=== PATIENT | female | born 1965 | race Caucasian/White ===

== ENCOUNTER → 2019-12-11 | Outpatient (CLI) | payer OTHER ==
[2019-12-11 09:53] LABS: BASOPHILS # (AUTO) 0.05 x10^3/uL (0-0.1); BASOPHILS % (AUTO) 1 % (0-1); EOSINOPHILS # (AUTO) 0.42 x10^3/uL (0-0.4); EOSINOPHILS % (AUTO) 4 % (1-7); LYMPHOCYTES # (AUTO) 2.51 x10^3/uL (1-3.4); LYMPHOCYTES % (AUTO) 24 % (22-44); MD NO; MEAN CORPUSCULAR HEMOGLOBIN 25.6 pg (27.0-34.8); MEAN CORPUSCULAR HGB CONC 31.3 g/dL (32.4-35.8); MEAN CORPUSCULAR VOLUME 81.8 fL (80-100); MEAN PLATELET VOLUME 7.7 fL (7.4-10.4); MONOCYTES # (AUTO) 0.68 x10^3/uL (0.2-0.8); MONOCYTES % (AUTO) 7 % (2-9); NEUTROPHILS # (AUTO) 6.83 x10^3/uL (1.8-6.8); NEUTROPHILS % (AUTO) 65 % (42-75); PLATELET COUNT 383 x10^3/uL (130-400); RED BLOOD COUNT 4.85 x10^6/uL (3.82-5.3); RED CELL DISTRIBUTION WIDTH 20.5 % (9.6-15.2)
[2019-12-11 09:57] LABS: ALANINE AMINOTRANSFERASE 33 U/L (12-78); ALBUMIN 3.7 g/dL (3.4-5.0); ANION GAP 6 mmol/L (5-15); CHLORIDE 109 mmol/L (98-107); CREATININE 1.04 mg/dL (0.55-1.02); INTERNATIONAL NORMALIZED RATIO 0.92 (0.93-1.1); PROTHROMBIN TIME 9.7 Seconds (9.6-11.5)
[2019-12-11 10:00] LABS: ALKALINE PHOSPHATASE 99 U/L (45-117); TOTAL PROTEIN 8.1 g/dL (6.4-8.2)
[2019-12-11 10:16] LABS: BILIRUBIN,TOTAL 0.2 mg/dL (0.2-1.0)
== END | disposition home or self-care (01) ==
LOC: STAR 08:52
PROVIDERS: ATTEND Specialist
DX: Z01.818 Encounter for other preprocedural examination (principal); C54.1 Malignant neoplasm of endometrium; N92.1 Excessive and frequent menstruation with irregular cycle
CPT/HCPCS: 36415; 71046; 80053; 85025; 85610; 85730; 86304; 93005

== ENCOUNTER → 2019-12-13 | Outpatient (CLI) | payer OTHER ==
[~2019-12-13] MED LIST: OMNIPAQUE 350 MG/ML, 100ML BOTTLE ONE
== END | disposition home or self-care (01) ==
LOC: CFH 09:04
PROVIDERS: ATTEND Specialist
DX: C54.1 Malignant neoplasm of endometrium (principal); N92.1 Excessive and frequent menstruation with irregular cycle; D64.9 Anemia, unspecified; N83.201 Unspecified ovarian cyst, right side; I70.0 Atherosclerosis of aorta; K76.0 Fatty (change of) liver, not elsewhere classified; N28.1 Cyst of kidney, acquired; M47.814 Spondylosis without myelopathy or radiculopathy, thoracic region
CPT/HCPCS: 71260; 74177; Q9967

== ENCOUNTER 2019-12-19 08:47 | Day surgery (SDC) | payer OTHER ==
[~2019-12-19] VITALS: Ht 165.1 cm; Wt 114.6 kg
[2019-12-19] MEDS ORDERED: LACTATED RINGERS 1,000 ML IV SCH (09:24)
[2019-12-19] MEDS ORDERED: LEVO125T5 PO (09:28)
[2019-12-19] MEDS ORDERED: FERR-46 PO (09:28)
[2019-12-19] MEDS ORDERED: FLUO20CA19 PO (09:28)
[2019-12-19] MEDS ORDERED: BUDE10.2 INH (09:28)
[2019-12-19] MEDS ORDERED: MONT10TA11 PO (09:28)
[2019-12-19] MEDS ORDERED: VITAMIN B-12 PO (09:28)
[2019-12-19] MEDS ORDERED: CEFOTETAN PMX 2GM/50ML 50 ML IV ONE (09:30)
[2019-12-19 09:35] LABS: HCG UR SG 1.023 (1.003-1.030)
[2019-12-19 09:57] VITALS: BP 142/84
[2019-12-19] MEDS ORDERED: FENTANYL PF 250 MCG/5ML ONE (10:13)
[2019-12-19] MEDS ORDERED: MIDAZOLAM 1 MG/ML, 2ML ONE (10:13)
[2019-12-19] MEDS ORDERED: BUPIVACAINE/PF 0.25% ONE (11:11)
[2019-12-19] MEDS ORDERED: INDOCYANINE GREEN 25 MG VIAL ONE (11:11)
[2019-12-19] MEDS ORDERED: HEPARIN 1,000 UNITS/ML, 10ML ONE (11:11)
[2019-12-19] MEDS ORDERED: EPINEPHRINE 1 MG/ML, 1ML ONE (11:11)
[2019-12-19] MEDS ORDERED: SUCCINYLCHOLINE 20 MG/ML, 10ML ONE (12:01)
[2019-12-19] MEDS ORDERED: PROPOFOL 10 MG/ML, 20ML ONE (12:01)
[2019-12-19] MEDS ORDERED: ONDANSETRON 2MG/ML, 2ML ONE (12:01)
[2019-12-19] MEDS ORDERED: DEXAMETHASONE 4 MG/ML, 1ML ONE (12:01)
[2019-12-19] MEDS ORDERED: ROCURONIUM 10 MG/ML,10ML ONE (12:01)
[2019-12-19] MEDS ORDERED: CEFAZOLIN 1,000 MG ONE (12:01)
[2019-12-19] MEDS ORDERED: BUPIVACAINE/PF-EPI 0.25% 1:200K INFIL ONE (12:15)
[2019-12-19] MEDS ORDERED: INDOCYANINE GREEN 25 MG VIAL INJ ONE (12:51)
[2019-12-19] MEDS ORDERED: HEPARIN 1,000 UNITS/ML, 10ML IV ONE (13:56)
[2019-12-19] MEDS ORDERED: DIAZEPAM 5 MG/ML, 2ML IV PRN ×2 (14:30)
[2019-12-19] MEDS ORDERED: ONDANSETRON 2MG/ML, 2ML IVPush PRN (14:30)
[2019-12-19] MEDS ORDERED: HYDROmorphone 1 MG/ML, 1ML INJ IV PRN (14:30)
[2019-12-19] MEDS ORDERED: PLEASE ENTER ALLERGIES MC SCH (14:30)
[2019-12-19] MEDS ORDERED: PROMETHAZINE 25 MG/ML, 1ML IV PRN (14:30)
[2019-12-19] MEDS ORDERED: ALBUTEROL SULFATE 2.5 MG/3 ML NPPB PRN (14:30)
[2019-12-19] MEDS ORDERED: OXYcodone 5 MG/5 ML ORAL.SOL UDC PO PRN (14:30)
[2019-12-19] MEDS ORDERED: LABETALOL 5MG/ML, 20ML IV PRN (14:30)
[2019-12-19] MEDS ORDERED: KETOROLAC 30 MG/1 ML IV PRN (14:30)
[2019-12-19] MEDS ORDERED: hydrALAzine 20 MG/ML, 1ML IV PRN (14:30)
[2019-12-19] MEDS ORDERED: MEPERIDINE/PF 25MG/0.5ML IVPush PRN (14:30)
[2019-12-19] MEDS ORDERED: FENTANYL PF 100 MCG/2ML IV PRN (14:30)
[2019-12-19] MEDS ORDERED: METOCLOPRAMIDE 5 MG/ML, 2ML IV PRN (14:30)
[2019-12-19] MEDS ORDERED: FENTANYL PF 100 MCG/2ML ONE (14:37)
[2019-12-19] MEDS ORDERED: KETOROLAC 30 MG/1 ML ONE (14:37)
[2019-12-19] MEDS ORDERED: LABETALOL 5MG/ML, 20ML ONE (14:52)
== END 2019-12-19 18:53 | disposition home or self-care (01) ==
LOC: OUT 08:47
PROVIDERS: ATTEND Specialist
DX: C54.1 Malignant neoplasm of endometrium (principal); N99.71 Accidental puncture and laceration of a genitourinary system organ or structure during a genitourinary system procedure; N83.11 Corpus luteum cyst of right ovary; N83.292 Other ovarian cyst, left side; N73.6 Female pelvic peritoneal adhesions (postinfective); E66.01 Morbid (severe) obesity due to excess calories; E03.9 Hypothyroidism, unspecified; J45.909 Unspecified asthma, uncomplicated; K21.9 Gastro-esophageal reflux disease without esophagitis; Z68.41 Body mass index [BMI] 40.0-44.9, adult; Z79.890 Hormone replacement therapy; Z79.899 Other long term (current) drug therapy; Z85.71 Personal history of Hodgkin lymphoma; Y83.8 Other surgical procedures as the cause of abnormal reaction of the patient, or of later complication, without mention of misadventure at the time of the procedure
CPT/HCPCS: 36415; 38570; 38900; 58554; 74018; 81025; 86850; 86900; 86923; 88112; 88305; 88307; 88329; 88333; J0171; J0330; J0690; J1100; J1644; J1885; J2250; J2405; J2704; J3010; J3490; J7120; S2900